=== PATIENT | male | born 1950 | race Caucasian/White ===

== ENCOUNTER 2017-03-09 16:37 | Inpatient (IN) ==
[2017-03-09] MEDS ORDERED: 0.9 % Sodium Chloride 1,000 ML ONE (17:11)
[2017-03-09] MEDS ORDERED: Albuterol 2.5 MG/3 ML NEBULIZER IH ONE (17:16)
[2017-03-09] MEDS ORDERED: Ipratropium/Albuterol Neb 3 ML IH ONE (17:17)
[2017-03-09 17:21] LABS: Basophils # 0.1 K/mcL (0.0-0.2); Basophils % 0.6 %; Eosinophils # 0.1 K/mcL (0.0-0.6); Eosinophils % 0.9 %; Hematocrit 46.8 % (37.5-50.1); Immature Granulocytes % 0.8 % (0-4); Lymphocytes # 0.7 K/mcL (0.6-4.6); Lymphocytes % 5.4 %; Mean Corpuscular HGB Conc 32.1 g/dL (31.6-35.5); Mean Corpuscular Hemoglobin 27.9 pg (28.0-33.3); Mean Corpuscular Volume 87.2 fL (83.0-100.0); Mean Platelet Volume 9.5 fL (9.4-12.4); Monocytes # 1.3 K/mcL (0.0-1.3); Monocytes % 10.7 %; Neutrophils # 10.2 K/mcL (1.6-8.9); Platelet Count 263 K/mcL (140-400); Red Blood Count 5.37 M/mcL (4.19-5.50); Red Cell Distribution Width 14.2 % (11.5-14.5); Segmented Neutrophils % 81.6 %
[2017-03-09] MEDS ORDERED: Azithromycin 500 MG in D5% in Water 250 ML IVPB ONE (17:21)
[2017-03-09 17:26] LABS: INR 1.1
[2017-03-09 17:29] LABS: Activated Partial Thrombo Time 27.9 Seconds (26.0-36.0)
[2017-03-09 17:38] LABS: Alanine Aminotransferase 22 Units/L (0-55); Albumin 3.9 g/dL (3.5-5.0); Albumin/Globulin Ratio 1.1 (1.1-2.2); Alkaline Phosphatase 69 Units/L (38-126); Aspartate Amino Transferase 18 Units/L (5-34); BUN/Creatinine Ratio 14 (6-26); Bilirubin,Direct 0.4 mg/dL (0.0-0.5); Bilirubin,Indirect 0.6 mg/dL (0.0-1.2); Blood Urea Nitrogen 13 mg/dL (8-26); Calcium 9.9 mg/dL (8.6-10.8); Carbon Dioxide 27 mEq/L (19-29); Chloride 101 mEq/L (98-109); Globulin 3.6 g/dL (2.4-3.5); Glucose 112 mg/dL (70-99); Magnesium 1.7 mg/dL (1.6-2.6); Osmolality,Calculated 287 (280-300); Phosphorous 1.5 mg/dL (2.3-4.7); Potassium 3.8 mEq/L (3.5-4.5); Sodium 138 mEq/L (136-145); Total Protein 7.5 g/dL (6.0-8.3); eGFR For African Americans > 60 (> 60); eGFR For Non-African Americans > 60 (> 60)
[2017-03-09] MEDS ORDERED: Acetaminophen 325 MG TABLET PO ONE (17:49)
--- NOTE | 2017-03-09 17:49 | Emergency Department Note ---
Disposition Clinical Impression: Sepsis Qualifiers: Sepsis type: sepsis due to unspecified organism Qualified Code(s): A41.9 - Sepsis, unspecified organism Disposition: Admitted As Inpatient Condition: Fair Time of Disposition: 20:53 General Adult HPI - General Chief complaint: ED Shortness of Breath/Dyspnea Stated complaint: flu like symptoms Time Seen by Provider: 03/09/17 17:11 Source: patient Mode of arrival: private vehicle Limitations: no limitations Nursing Notes Reviewed: Yes Vital Signs Reviewed: Yes - History of Present Illness HPI Narrative: 66-year-old male presents the ED with shortness of breath, hypoxia, fevers and nausea for 2 days. He has a history of COPD, hypertension. He is supposed to be on oxygen at home but says he does not wear. He states that this started yesterday and has progressively gotten worse. He says he is had the sweats and had fever over 101. She is not a very hard time catching his breath. Really is worse than his normal COPD. He is not complaining of any chest pain. He is nauseous Pacetti has not vomited. He is coughing up some sputum. There are no sick contacts at home. No diarrhea, constipation, abdominal pain, pain or tingling down the arms or legs, generalized weakness. He did state that about a week ago he was removing an A/C unit and there was a lot of bird feces that were aerosolized and he did inhale some. Patient has no other complaints at this time. Pain Scale: 0 - Related Data Home Medications Medication Instructions Recorded Confirmed Acyclovir [Zovirax] 800 mg PO 5XD 03/09/17 03/09/17 Albuterol Neb [Proventil Neb] 2.5 mg IH Q4H PRN 03/09/17 03/09/17 Albuterol Sulfate [Proair Hfa] 2 puff IH Q4H PRN 03/09/17 03/09/17 Budesonide/Formoterol 160/4.5 2 puff IH BIDR 03/09/17 03/09/17 [Symbicort 160/4.5] Tiotropium [Spiriva] 18 mcg IH 0700 03/09/17 03/09/17 Allergies Allergy/AdvReac Type Severity Reaction Status Date / Time Sulfa (Sulfonamide Allergy Rash Verified 03/09/17 17:15 Antibiotics) Review of Systems: 10 point review of systems done and negative unless otherwise stated in history of present illness. Review of Systems: As Per HPI Limitations: ROS unobtainable due to patients medical condition Constitutional: Reports: fever. Denies: weakness Cardiovascular: Denies: chest pain, palpitations, dyspnea on exertion, edema, syncope Respiratory: Reports: cough, wheezes, sputum production Gastrointestinal: Denies: abdominal pain, nausea, vomiting, diarrhea, constipation, hematemesis, melena, hematochezia Past Medical History - Past Medical History Medical history: Reports: asthma, COPD, hypertension, TIA Psychiatric history: Reports: no psych history - Social History Smoking Status: Former smoker Smokeless Tobacco Status: No Alcohol use: Reports: none Drug use: Reports: none Physical Exam - General Limitations: no limitations General appearance: alert, in no apparent distress - Head Head exam: atraumatic, normocephalic, normal inspection - Eye Eye exam: Present: normal appearance, PERRL, EOMI - ENT ENT exam: normal exam, normal oropharynx, mucous membranes moist - Neck Neck exam: Present: normal inspection, full ROM, trachea midline - Chest Chest inspection: Present: normal inspection, symmetric chest wall rise - Respiratory Respiratory exam: Present: wheezes (Bilaterally), accessory muscle use - Cardiovascular Cardiovascular exam: Present: normal rhythm, tachycardia, normal heart sounds - Abdominal Exam Abdominal exam: Present: soft, Non-Tender. Absent: tenderness, distention, guarding, rebound, rigidity - Expanded Lower Extremity Exam Neurovascular/Tendon exam: Absent: motor deficit, sensory deficit, tendon deficit - Back Exam Back exam: Present: normal inspection, full ROM. Absent: tenderness, CVA tenderness (R), CVA tenderness (L) - Neurological Exam Neurological exam: Present: alert, oriented X3 - Skin Skin exam: Present: warm, dry, intact, normal color Course Course Narrative: 66-year-old male presents to the ED complaining of shortness of breath and fevers as well as hypoxia. Upon arrival he is having a hard time breathing so we put him on nasal cannula at 4 L his saturation was still below 90 so we put him on an oxygen mask at 6 L oxygen saturation were 93% which is normal for him. He was having a very difficult time breathing. He was tachycardic, tachypneic and had a fever. So he was considered under sepsis protocol. We then got labs including blood cultures. An lactate. He had an IV placed and fluids began running. Also gave him DuoNeb's as he was very tight in the lungs and did have wheezes. We got a chest x-ray, flu swab. We will start him on azithromycin and ceftriaxone. Patient's okay with this plan. Most likely disposition is admission. - Reevaluation(s) Reevaluation #1: We did order a d-dimer because he was tachycardic and hypoxic. That did come back elevated so we decided to get a CT angiogram of his chest to rule out any signs of pulmonary embolism. Patient also had a little bit COPD exacerbation so we did give him Solu-Medrol. Due the pain as well as tachycardia we also gave him 325 of aspirin. Patient okay with this plan. Time: 18:50 Vital Signs O2 Sat by Pulse Oximetry 92 03/09/17 17:12 Temperature 99.1 F 03/09/17 22:49 Pulse Rate 97 03/09/17 22:49 Respiratory Rate 22 03/09/17 22:49 Blood Pressure 136/94 03/09/17 22:49 O2 Sat by Pulse Oximetry 92 03/09/17 22:49 Oxygen Delivery Oxygen Delivery Room Air Medical Decision Making - MDM Narrative Medical decision making narrative: 66-year-old male presents to the ED complaining of flulike symptoms including fever, shortness of breath, hypoxia and generalized weakness. He did have an exposure to Bird feces couple days ago. Patient was hypoxic upon arrival so we put him on an oxygen mask at 6 L and his saturations went to 93% which is normal for him as he does have COPD. We got blood cultures, lactate, basic laboratories. We also got chest x-ray. Chest x-ray did show possible pneumonia in the bases. We started him on azithromycin and Rocephin as that does cover chlamydia psittici. Due to patient per currently being under sepsis protocol as he was tachycardic to And did have a fever we started sepsis protocol and got blood cultures on him as well. He did have elevated white count as well. Due to his shortness of breath and tachypnea and hypoxia we also worried about possible pulmonary embolism so we did a d-dimer which was elevated and then we proceeded to get a CT angiogram of his chest. Which did not show a pulmonary embolism in the central arteries. Patient was admitted to the hospitalist service for further evaluation and treatment. Patient is okay with this plan. Patient was successfully admitted to the hospitalist Dr. Jacome. Patient is admitted in stable condition. Chest X-Ray 03/09/17 17:12 IMPRESSION: Minimal linear opacity in the bases, favored to represent atelectasis or scarring. Superimposed pneumonia is a possibility in the appropriate clinical setting. D/ / Elgin Greene MD / Elgin Greene MD Interpreting Provider: Elgin Greene MD Chest CTA 03/09/17 18:09 IMPRESSION: 1. Suboptimal evaluation of the segmental and subsegmental pulmonary arterial branches. No central pulmonary embolus detected. 2. Patchy bilateral lower lung airspace opacity, greater on the left. Although some of this could be atelectasis, pneumonia is also considered likely. That should be followed to resolution. D/ / Tip Wright MD / Tip Wright MD Interpreting Provider: Tip Wright MD - Medical Records Medical records reviewed: Yes I reviewed the patient's medical records. - Lab Data Lab results reviewed: Yes I reviewed the patient's lab results. Result diagrams: 03/09/17 17:10 03/09/17 17:10 Lab Results 03/09/17 03/09/17 03/09/17 Range/Units 17:10 17:10 17:10 WBC 12.5 H (4.3-11.1) K/mcL RBC 5.37 (4.19-5.50) M/mcL Hgb 15.0 (12.9-16.9) g/dL Hct 46.8 (37.5-50.1) % MCV 87.2 (83.0-100.0) fL MCH 27.9 L (28.0-33.3) pg MCHC 32.1 (31.6-35.5) g/dL RDW 14.2 (11.5-14.5) % Plt Count 263 (140-400) K/mcL MPV 9.5 (9.4-12.4) fL Immature Gran % 0.8 (0-4) % Seg Neutrophils % 81.6 % Lymphocytes % 5.4 % Monocytes % 10.7 % Eosinophils % 0.9 % Basophils % 0.6 % Neutrophils # 10.2 H (1.6-8.9) K/mcL Lymphocytes # 0.7 (0.6-4.6) K/mcL Monocytes # 1.3 (0.0-1.3) K/mcL Eosinophils # 0.1 (0.0-0.6) K/mcL Basophils # 0.1 (0.0-0.2) K/mcL PT 12.0 (9.4-12.1) Seconds INR 1.1 APTT 27.9 (26.0-36.0) Seconds D-Dimer 962 H (0-500) ng/mLFEU ABG pH (7.32-7.45) pH Units ABG pCO2 (35-45) mmHg ABG pO2 (85-104) mmHg ABG HCO3 (21-27) mEq/L ABG Total CO2 (20-26) mEq/L ABG O2 Saturation (95-98) % ABG Base Excess (-2 to 3) mEq/L Sodium 138 (136-145) mEq/L Potassium 3.8 (3.5-4.5) mEq/L Chloride 101 (98-109) mEq/L Carbon Dioxide 27 (19-29) mEq/L BUN 13 (8-26) mg/dL Creatinine 0.95 (0.72-1.25) mg/dL Est GFR ( Amer) > 60 (> 60) Est GFR (Non-Af Amer) > 60 (> 60) BUN/Creatinine Ratio 14 (6-26) Glucose 112 H (70-99) mg/dL Calculated Osmolality 287 (280-300) Lactic Acid (0.5-2.2) mmol/L Calcium 9.9 (8.6-10.8) mg/dL Phosphorus 1.5 L (2.3-4.7) mg/dL Magnesium 1.7 (1.6-2.6) mg/dL Total Bilirubin 1.0 (0.2-1.2) mg/dL Direct Bilirubin 0.4 (0.0-0.5) mg/dL Indirect Bilirubin 0.6 (0.0-1.2) mg/dL AST 18 (5-34) Units/L ALT 22 (0-55) Units/L Alkaline Phosphatase 69 (38-126) Units/L Troponin I (0-0.03) ng/mL B-Natriuretic Peptide (0-100) pg/mL Serum Total Protein 7.5 (6.0-8.3) g/dL Albumin 3.9 (3.5-5.0) g/dL Globulin 3.6 H (2.4-3.5) g/dL Albumin/Globulin Ratio 1.1 (1.1-2.2) Urine Color (Yellow) Urine Clarity (Clear) Urine pH (5.0-8.0) pH Units Ur Specific [place] (1.010-1.025) Urine Protein (Neg-Trace) mg/dL Urine Glucose (UA) (Normal) mg/dL Urine Ketones (Negative) mg/dL Urine Blood (Negative) Urine Nitrite (Negative) Urine Bilirubin (Negative) Urine Urobilinogen (Normal) mg/dL Ur Leukocyte Esterase (Negative) Urine Microscopic RBC (0-3) per hpf Urine Microscopic WBC (0-3) per hpf Ur Squamous Epith Cells (None-Few) per lpf Urine Bacteria (None-Few) per hpf Hyaline Casts (None-Few) per lpf Ur Culture Indicated? (NO) 03/09/17 03/09/17 03/09/17 Range/Units 17:10 17:10 17:54 WBC (4.3-11.1) K/mcL RBC (4.19-5.50) M/mcL Hgb (12.9-16.9) g/dL Hct (37.5-50.1) % MCV (83.0-100.0) fL MCH (28.0-33.3) pg MCHC (31.6-35.5) g/dL RDW (11.5-14.5) % Plt Count (140-400) K/mcL MPV (9.4-12.4) fL Immature Gran % (0-4) % Seg Neutrophils % % Lymphocytes % % Monocytes % % Eosinophils % % Basophils % % Neutrophils # (1.6-8.9) K/mcL Lymphocytes # (0.6-4.6) K/mcL Monocytes # (0.0-1.3) K/mcL Eosinophils # (0.0-0.6) K/mcL Basophils # (0.0-0.2) K/mcL PT (9.4-12.1) Seconds INR APTT (26.0-36.0) Seconds D-Dimer (0-500) ng/mLFEU ABG pH 7.41 (7.32-7.45) pH Units ABG pCO2 39 (35-45) mmHg ABG pO2 70 L (85-104) mmHg ABG HCO3 25 (21-27) mEq/L ABG Total CO2 26 (20-26) mEq/L ABG O2 Saturation 94 L (95-98) % ABG Base Excess 1 (-2 to 3) mEq/L Sodium (136-145) mEq/L Potassium (3.5-4.5) mEq/L Chloride (98-109) mEq/L Carbon Dioxide (19-29) mEq/L BUN (8-26) mg/dL Creatinine (0.72-1.25) mg/dL Est GFR ( Amer) (> 60) Est GFR (Non-Af Amer) (> 60) BUN/Creatinine Ratio (6-26) Glucose (70-99) mg/dL Calculated Osmolality (280-300) Lactic Acid (0.5-2.2) mmol/L Calcium (8.6-10.8) mg/dL Phosphorus (2.3-4.7) mg/dL Magnesium (1.6-2.6) mg/dL Total Bilirubin (0.2-1.2) mg/dL Direct Bilirubin (0.0-0.5) mg/dL Indirect Bilirubin (0.0-1.2) mg/dL AST (5-34) Units/L ALT (0-55) Units/L Alkaline Phosphatase (38-126) Units/L Troponin I 0.01 (0-0.03) ng/mL B-Natriuretic Peptide 114 H (0-100) pg/mL Serum Total Protein (6.0-8.3) g/dL Albumin (3.5-5.0) g/dL Globulin (2.4-3.5) g/dL Albumin/Globulin Ratio (1.1-2.2) Urine Color (Yellow) Urine Clarity (Clear) Urine pH (5.0-8.0) pH Units Ur Specific [place] (1.010-1.025) Urine Protein (Neg-Trace) mg/dL Urine Glucose (UA) (Normal) mg/dL Urine Ketones (Negative) mg/dL Urine Blood (Negative) Urine Nitrite (Negative) Urine Bilirubin (Negative) Urine Urobilinogen (Normal) mg/dL Ur Leukocyte Esterase (Negative) Urine Microscopic RBC (0-3) per hpf Urine Microscopic WBC (0-3) per hpf Ur Squamous Epith Cells (None-Few) per lpf Urine Bacteria (None-Few) per hpf Hyaline Casts (None-Few) per lpf Ur Culture Indicated? (NO) 03/09/17 03/09/17 Range/Units 17:59 18:12 WBC (4.3-11.1) K/mcL RBC (4.19-5.50) M/mcL Hgb (12.9-16.9) g/dL Hct (37.5-50.1) % MCV (83.0-100.0) fL MCH (28.0-33.3) pg MCHC (31.6-35.5) g/dL RDW (11.5-14.5) % Plt Count (140-400) K/mcL MPV (9.4-12.4) fL Immature Gran % (0-4) % Seg Neutrophils % % Lymphocytes % % Monocytes % % Eosinophils % % Basophils % % Neutrophils # (1.6-8.9) K/mcL Lymphocytes # (0.6-4.6) K/mcL Monocytes # (0.0-1.3) K/mcL Eosinophils # (0.0-0.6) K/mcL Basophils # (0.0-0.2) K/mcL PT (9.4-12.1) Seconds INR APTT (26.0-36.0) Seconds D-Dimer (0-500) ng/mLFEU ABG pH (7.32-7.45) pH Units ABG pCO2 (35-45) mmHg ABG pO2 (85-104) mmHg ABG HCO3 (21-27) mEq/L ABG Total CO2 (20-26) mEq/L ABG O2 Saturation (95-98) % ABG Base Excess (-2 to 3) mEq/L Sodium (136-145) mEq/L Potassium (3.5-4.5) mEq/L Chloride (98-109) mEq/L Carbon Dioxide (19-29) mEq/L BUN (8-26) mg/dL Creatinine (0.72-1.25) mg/dL Est GFR ( Amer) (> 60) Est GFR (Non-Af Amer) (> 60) BUN/Creatinine Ratio (6-26) Glucose (70-99) mg/dL Calculated Osmolality (280-300) Lactic Acid 1.0 (0.5-2.2) mmol/L Calcium (8.6-10.8) mg/dL Phosphorus (2.3-4.7) mg/dL Magnesium (1.6-2.6) mg/dL Total Bilirubin (0.2-1.2) mg/dL Direct Bilirubin (0.0-0.5) mg/dL Indirect Bilirubin (0.0-1.2) mg/dL AST (5-34) Units/L ALT (0-55) Units/L Alkaline Phosphatase (38-126) Units/L Troponin I (0-0.03) ng/mL B-Natriuretic Peptide (0-100) pg/mL Serum Total Protein (6.0-8.3) g/dL Albumin (3.5-5.0) g/dL Globulin (2.4-3.5) g/dL Albumin/Globulin Ratio (1.1-2.2) Urine Color Yellow (Yellow) Urine Clarity Clear (Clear) Urine pH 8.0 (5.0-8.0) pH Units Ur Specific [place] 1.023 (1.010-1.025) Urine Protein 30 H (Neg-Trace) mg/dL Urine Glucose (UA) Normal (Normal) mg/dL Urine Ketones Trace H (Negative) mg/dL Urine Blood Negative (Negative) Urine Nitrite Negative (Negative) Urine Bilirubin Negative (Negative) Urine Urobilinogen Normal (Normal) mg/dL Ur Leukocyte Esterase Trace H (Negative) Urine Microscopic RBC 5-15 H (0-3) per hpf Urine Microscopic WBC 5-15 H (0-3) per hpf Ur Squamous Epith Cells Many H (None-Few) per lpf Urine Bacteria None Seen (None-Few) per hpf Hyaline Casts None Seen (None-Few) per lpf Ur Culture Indicated? YES A (NO) - Radiology Data Radiology results reviewed: Yes I reviewed the patient's radiology results. - EKG Data EKG #1 EKG attestation: Yes I reviewed and interpreted this EKG. EKG results narrative: EKG done at 1711 and reviewed by myself and the attending shows sinus tachycardia at a rate of 123, SD 112, QRS 107, QTc 386 with a leftward axis deviation. There is no signs of ST changes, T-wave changes. No signs of hypertrophy. No signs of WA/B Gotto syndrome. No signs of any blocks. Patient did not have an old EKG to compare this time. Overall impression is sinus tachycardia with a short SD interval. EKG shows normal: sinus rhythm, QRS complexes, ST-T waves Rate: tachycardia Rhythm: NSR [place]/QRS: left axis deviation When compared to previous EKG there are: previous EKG unavailable Interpretation: no acute changes Attestation Statement - Attestation Attestation: I, Ming Davison, examined this patient and my medical decision-making was reviewed with the APPRENTICE/PA/Advanced Practice Nurse/Resident Physician. I agree with the documented findings, disposition and treatment plan as described except to the extent set forth below. 66-year-old male resents emergency department with concerns of tachycardia and shortness of breath. Patient states symptoms have been worsening over the past 48 hours. Patient has a history of severe COPD. He reports he had exposure to birds feces while taking down an air conditioner at his house 2 days ago. Patient reports fever, nausea, increasing shortness of breath with minimal exertion. On initial evaluation patient is diaphoretic and tachycardic to 1: 30. Patient satting 85% on our initial evaluation. This improved with oxygen via Ventimask and then started to sat 93%. Patient states he improved significantly after administration of albuterol nebulizer. CTA of the chest was negative for PE. Patient has possible pneumonia present on x-ray and CT. He was started on community-acquired antibiotics which include azithromycin to cover possible Psittaci. Patient comfortable with the plan for admission of the hospital. He was accepted to the hospital by Dr. Jacome.
[2017-03-09 17:59] LABS: ABG Base Excess 1 mEq/L (-2 to 3); ABG HCO3 25 mEq/L (21-27); ABG Oxygen Saturation 94 % (95-98); ABG PCO2 39 mmHg (35-45); ABG PH 7.41 pH Units (7.32-7.45); ABG PO2 70 mmHg (85-104); ABG TCO2 26 mEq/L (20-26)
[2017-03-09 18:14] LABS: Bilirubin,Urine Negative (Negative); Blood,Urine Negative (Negative); Clarity,Urine Clear (Clear); Color,Urine Yellow (Yellow); Glucose,Urine (UA) Normal (Normal); Ketones,Urine Trace mg/dL (Negative); Leukocyte Esterase,Urine Trace (Negative); Nitrite,Urine Negative (Negative); Protein,Urine 30 mg/dL (Neg-Trace); Specific Gravity,Urine 1.023 (1.010-1.025); Urobilinogen,Urine Normal (Normal)
[2017-03-09 18:16] LABS: Bacteria,Urine None Seen per hpf (None-Few); Hyaline Casts,Urine None Seen per lpf (None-Few); Squamous Epithelial Cell,Urine Many per lpf (None-Few)
[2017-03-09] MEDS: 0.9 % Sodium Chloride 1,000 ML IVC SCH ×2 (18:37→18:38)
[2017-03-09] MEDS ORDERED: Aspirin 81 MG TAB.CHEW PO ONE (18:48)
[2017-03-09] MEDS ORDERED: methylPREDNISolone 125 MG/2 ML VIAL IVP ONE (18:48)
--- NOTE | 2017-03-09 23:26 | Internal Med History&Physical ---
Date of Encounter: 03/09/17 Time of Encounter: 23:26 Assessment and Plan (1) Acute respiratory failure with hypoxia Current visit: Yes Status: Acute Patient has COPD at baseline but is not on home oxygen, he comes in with worsening respiratory symptoms and is found to have a pulse ox reading in the 80s, which improved with the use of noninvasive mechanical ventilation, the etiology of his current predicament is multifactorial, his underlying COPD with superimposed shunting from suspected pneumonia, we will continue NIMV with continuous pulse ox monitoring, will transition to nasal cannula when he has sustained improvement in his currently tenuous respiratory state whilst treating the underlying cause (2) Sepsis Current visit: Yes Status: Acute Comes in with signs and symptoms of pneumonia and is found to have criteria meeting sepsis, he was empirically started on IV antibiotics after blood cultures were drawn, he also received IVF bolus per the sepsis protocol, we will continue antibiotic regimen pending microbiology results Qualifiers: Sepsis type: sepsis due to unspecified organism Qualified Code(s): A41.9 - Sepsis, unspecified organism (3) Pneumonia Current visit: Yes Status: Acute Presents with signs and symptoms of respiratory tract infection and is found to have an infiltrate on diagnostic imaging, will check sputum Gram stain and culture, urine legionella and strep antigens, further assessment and plan per sepsis section Qualifiers: Pneumonia type: due to unspecified organism Laterality: left Lung location: lower lobe of lung Qualified Code(s): J18.1 - Lobar pneumonia, unspecified organism (4) COPD (chronic obstructive pulmonary disease) Current visit: Yes Status: Chronic In mild exacerbation, continue ana m and PRN nebs Qualifiers: COPD type: emphysema Emphysema type: panlobular Qualified Code(s): J43.1 - Panlobular emphysema (5) HTN (hypertension) Current visit: Yes Status: Chronic continue antihypertensives with BP monitoring Qualifiers: Hypertension type: essential hypertension Qualified Code(s): I10 - Essential (primary) hypertension Internal Medicine - H&P: HPI Chief complaint: shortness of breath Admitted From: Emergency Dept Plans for Post Hospital Care: Home History of present illness: Mr. Szymanski is a 66 year old male with a history of COPD not on home oxygen as well as essential hypertension who comes to the ER today with worsening shortness of breath. He reports that he was in his usual state of health until 2 days prior to presentation when he began experiencing worsening dyspnea from his baseline, associated with multiple episodes of cough with production of yellowish sputum with increasing amounts. This was also associated with episodes of intermittent fever and chills with a temperature check at home of 101. He also noticed dyspnea on exertion, night sweats, nausea but no vomiting. He had general aches and pains with general malaise. He reports that his symptoms initially began with nasal congestion and runny nose but denies recent sick contacts. On the day prior to the onset of the symptoms he was exposed to bird droppings when he tried to clean A/C unit. 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 He denies any changes to his urinary or bowel habits. He came to the ER today due to worsening symptoms. In the ER he was found to have a pulse ox reading in the 80's and was summarily placed on NIMV with improvement in his respiratory status. Past Med Surg Social Fam HX - Past Medical History Source: patient Medical history: asthma, COPD, hypertension, TIA Psychiatric history: no psych history - Past Surgical History Surgical History: other (tonsillectomy, LHC but no stents) - Social History Smoking Status: Former smoker (smoked from age of 19 years) Packs per day: 1-2ppd but quit 1 yr ago Smokeless Tobacco Status: No Alcohol use: none Drug use: none Current living situation: Home - Independent, With Family Activity Level: Independent ambulation - Family History Mother History Unknown: Yes Father Living Status: Age at : 60 Hx Family Respiratory Disorders: Yes - Additional Family History Additional family history: His father had hypertension, he also had PA in his 40 's, no family history of diabetes mellitus or cancer to his knowledge Internal Medicine - H&P: Meds Acyclovir [Zovirax] 800 mg PO 5XD 03/09/17 [History] Albuterol Neb [Proventil Neb] 2.5 mg IH Q4H PRN 03/09/17 [History] Albuterol Sulfate [Proair Hfa] 2 puff IH Q4H PRN 03/09/17 [History] Budesonide/Formoterol 160/4.5 [Symbicort 160/4.5] 2 puff IH BIDR 03/09/17 [ History] Tiotropium [Spiriva] 18 mcg IH 0700 03/09/17 [History] 3 Allergy/AdvReac Type Severity Reaction Status Date / Time Sulfa (Sulfonamide Allergy Rash Verified 03/09/17 17:15 Antibiotics) All Systems PM: A 10-system review of systems was performed and is negative for pertinent findings except as documented above in the HPI. - Constitutional Vitals: Temp Pulse Resp BP Pulse Ox 99.1 F 97 22 136/94 90 03/09/17 22:49 03/09/17 22:49 03/09/17 22:49 03/09/17 22:49 03/09/17 23:01 GENERAL: Adult male, lying in bed, Alert, in respiratory distress HEENT: NC/AT, EOMI, PERRLA, anicteric sclera, normal conjunctiva, supple, clear nares, moist mucous membranes, RESP: [place] wheezing in all lung gloria with prolonged expiratory phase, limited air entry, no crackles CARDIO: Normal heart sounds with RRR, no murmurs, no JVD, no ankle edema GI: Soft, full, no tenderness, no organomegaly felt, normal bowel sounds heard MUSCULOSKELETAL: Grossly normal movements bilaterally, no deformities noted, NEUROLOGIC: CN 2-12 intact grossly. No gross motor/sensory deficit appreciated, PSYCHIATRY: AAO x 3. Mood is fair SKIN: no skin rash or ulcers noted Internal Med - H&P Results - Labs CBC & Chem 7: 03/09/17 17:10 03/09/17 17:10 - Diagnostic Studies Chest x-ray Status: image reviewed by me CT scan - chest Status: image reviewed by me
[2017-03-09] MEDS ORDERED: Naloxone 0.4 MG/ML INJ IVP PRN (23:43)
[2017-03-09] MEDS ORDERED: Albuterol 2.5 MG/3 ML NEBULIZER IH PRN (23:45)
[2017-03-10] MEDS: Albuterol 2.5 MG/3 ML NEBULIZER IH SCH ×7 (00:32→23:06)
[2017-03-10] MEDS: *HR* Heparin 5,000 UNIT/ML VIAL SQ SCH ×3 (00:48→16:38)
[2017-03-10] MEDS ORDERED: cefTRIAXone 1,000 MG in Water for inj. (sterile) 10 ML IVP ONE ×2 (01:00→17:22)
[2017-03-10 07:21] LABS: BUN/Creatinine Ratio 23 (6-26); Blood Urea Nitrogen 19 mg/dL (8-26); Calcium 9.2 mg/dL (8.6-10.8); Carbon Dioxide 26 mEq/L (19-29); Chloride 104 mEq/L (98-109); Glucose 172 mg/dL (70-99); Magnesium 1.9 mg/dL (1.6-2.6); Osmolality,Calculated 292 (280-300); Phosphorous 1.6 mg/dL (2.3-4.7); Potassium 3.5 mEq/L (3.5-4.5); Sodium 138 mEq/L (136-145); eGFR For African Americans > 60 (> 60); eGFR For Non-African Americans > 60 (> 60)
[2017-03-10 07:49] LABS: Basophils % 0.4 %; Hematocrit 42.5 % (37.5-50.1); Immature Granulocytes % 1.2 % (0-4); Lymphocytes # 0.5 K/mcL (0.6-4.6); Lymphocytes % 4.6 %; Mean Corpuscular HGB Conc 31.5 g/dL (31.6-35.5); Mean Corpuscular Hemoglobin 27.7 pg (28.0-33.3); Mean Corpuscular Volume 87.8 fL (83.0-100.0); Mean Platelet Volume 9.9 fL (9.4-12.4); Monocytes # 0.4 K/mcL (0.0-1.3); Monocytes % 3.3 %; Neutrophils # 10.2 K/mcL (1.6-8.9); Platelet Count 261 K/mcL (140-400); Red Blood Count 4.84 M/mcL (4.19-5.50); Red Cell Distribution Width 14.1 % (11.5-14.5); Segmented Neutrophils % 90.5 %
[2017-03-10 08:04] LABS: Hemoglobin 13.4 g/dL (12.9-16.9)
[2017-03-10] MEDS: Budesonide/Formoterol 160/4.5 MDI IH SCH ×2 (08:08→19:41)
[2017-03-10] MEDS: Azithromycin 250 MG TABLET PO SCH (08:36)
[2017-03-10] MEDS: cefTRIAXone 2,000 MG in Water for inj. (sterile) 20 ML IVP SCH (11:20)
[2017-03-10] MEDS ORDERED: *HR* Metoprolol 5 MG/5 ML VIAL IVP ONE ×2 (17:11→17:13)
[2017-03-10] MEDS ORDERED: Levalbuterol Neb 1.25 MG/3 ML IH ONE (17:44)
[2017-03-10] MEDS ORDERED: methylPREDNISolone 125 MG/2 ML VIAL IVP ONE (19:14)
--- NOTE | 2017-03-10 19:19 | Internal Med Progress Note ---
Date of Encounter: 03/10/17 Time of Encounter: 11:00 - Assessment and plan (1) Acute respiratory failure with hypoxia Current Visit: Yes Status: Acute Assessment and plan: -Patient with acute hypoxic respiratory failure secondary to COPD exacerbation due to community-acquired pneumonia -Management as below (2) Pneumonia Current Visit: Yes Status: Acute Assessment and plan: -Continue IV antibiotics with IV ceftriaxone/azithromycin Qualifiers: Pneumonia type: due to unspecified organism Laterality: left Lung location: lower lobe of lung Qualified Code(s): J18.1 - Lobar pneumonia, unspecified organism (3) COPD (chronic obstructive pulmonary disease) Current Visit: Yes Status: Chronic Assessment and plan: -Patient with acute on chronic COPD exacerbation -Given IV Solu-Medrol Qualifiers: COPD type: emphysema Emphysema type: panlobular Qualified Code(s): J43.1 - Panlobular emphysema (4) Tachycardia Current Visit: Yes Status: Acute Assessment and plan: -Patient was SVT this afternoon which did not respond to adenosine or vagovagal maneuvers but did respond to Cardizem -We will continue low-dose Cardizem -Cardiology consulted and appreciate recommendations (5) HTN (hypertension) Current Visit: Yes Status: Chronic Qualifiers: Hypertension type: essential hypertension Qualified Code(s): I10 - Essential (primary) hypertension (6) DVT prophylaxis Current Visit: Yes Status: Acute Assessment and plan: Continue heparin - Subjective Interval history: Patient was SVT this afternoon which did not respond to adenosine or vagovagal maneuvers but did respond to Cardizem Patient without chest pain and in no respiratory distress on supplemental oxygen at 2 L satting low 90s - Constitutional Vitals: Temp Pulse Resp BP Pulse Ox 98.2 F 198 20 134/85 91 03/10/17 16:25 03/10/17 17:14 03/10/17 17:56 03/10/17 17:56 03/10/17 17:56 - Respiratory Respiratory exam: Present: wheezes. Absent: accessory muscle use, respiratory distress - Cardiovascular Cardiovascular exam: Present: RRR, +S1, +S2. Absent: diastolic murmur, gallop, rubs, systolic murmur Internal Medicine: Result - Labs CBC & Chem 7: 03/10/17 06:44 03/10/17 06:44 Labs: Short CBC 03/10/17 Range/Units 06:44 WBC 11.3 H (4.3-11.1) K/mcL Hgb 13.4 D (12.9-16.9) g/dL Hct 42.5 (37.5-50.1) % Plt Count 261 (140-400) K/mcL Neutrophils # 10.2 H (1.6-8.9) K/mcL BMP 03/10/17 06:44 Sodium 138 Potassium 3.5 Chloride 104 Carbon Dioxide 26 BUN 19 Creatinine 0.81 Glucose 172 H Calcium 9.2 - ABG Interpretation ABG results: ABG ABG pH 7.41 pH Units (7.32-7.45) 03/09/17 17:54 ABG pCO2 39 mmHg (35-45) 03/09/17 17:54 ABG pO2 70 mmHg (85-104) L 03/09/17 17:54 ABG O2 Saturation 94 % (95-98) L 03/09/17 17:54 PT/INR, D-dimer PT 12.0 Seconds (9.4-12.1) 03/09/17 17:10 D-Dimer 962 ng/mLFEU (0-500) H 03/09/17 17:10 Consult Discharge Plan - Plan Referrals: Trena Navarro, [employer] [Primary Care Provider] -
[2017-03-11] MEDS: *HR* Heparin 5,000 UNIT/ML VIAL SQ SCH ×3 (00:16→17:32)
[2017-03-11] MEDS: Albuterol 2.5 MG/3 ML NEBULIZER IH SCH ×2 (04:27→07:44)
[2017-03-11] MEDS: Budesonide/Formoterol 160/4.5 MDI IH SCH ×2 (07:44→20:52)
[2017-03-11] MEDS: Azithromycin 250 MG TABLET PO SCH (10:12)
[2017-03-11] MEDS: Ipratropium/Albuterol Neb 3 ML IH SCH ×4 (11:25→23:23)
[2017-03-11 11:45] LABS: Basophils % 0.3 %; Hematocrit 41.2 % (37.5-50.1); Hemoglobin 13.2 g/dL (12.9-16.9); Immature Granulocytes % 1.3 % (0-4); Lymphocytes # 0.6 K/mcL (0.6-4.6); Lymphocytes % 4.4 %; Mean Corpuscular Hemoglobin 28.3 pg (28.0-33.3); Mean Corpuscular Volume 88.2 fL (83.0-100.0); Mean Platelet Volume 9.6 fL (9.4-12.4); Monocytes # 1.1 K/mcL (0.0-1.3); Monocytes % 7.5 %; Neutrophils # 12.6 K/mcL (1.6-8.9); Platelet Count 289 K/mcL (140-400); Red Blood Count 4.67 M/mcL (4.19-5.50); Red Cell Distribution Width 14.6 % (11.5-14.5); Segmented Neutrophils % 86.5 %
[2017-03-11 11:58] LABS: BUN/Creatinine Ratio 28 (6-26); Blood Urea Nitrogen 24 mg/dL (8-26); Calcium 9.2 mg/dL (8.6-10.8); Carbon Dioxide 26 mEq/L (19-29); Chloride 107 mEq/L (98-109); Glucose 151 mg/dL (70-99); Osmolality,Calculated 303 (280-300); Potassium 3.7 mEq/L (3.5-4.5); Sodium 143 mEq/L (136-145); eGFR For African Americans > 60 (> 60); eGFR For Non-African Americans > 60 (> 60)
[2017-03-11] MEDS: cefTRIAXone 2,000 MG in Water for inj. (sterile) 20 ML IVP SCH (13:10)
--- NOTE | 2017-03-11 14:30 | Internal Med Progress Note ---
Date of Encounter: 03/11/17 Time of Encounter: 11:00 - Assessment and plan (1) Acute respiratory failure with hypoxia Current Visit: Yes Status: Acute Assessment and plan: -Patient with acute hypoxic respiratory failure secondary to COPD exacerbation due to community-acquired pneumonia -Management as below -Will consult pulmonology and appreciate recommendations (2) Pneumonia Current Visit: Yes Status: Acute Assessment and plan: -Patient with diffuse expiratory wheezes and hypoxia -Chest x-ray showed Minimal linear opacity in the bases, favored to represent atelectasis or scarring. Superimposed pneumonia is a possibility in the appropriate clinical setting. -Continue IV antibiotics with IV ceftriaxone/azithromycin Qualifiers: Pneumonia type: due to unspecified organism Laterality: left Lung location: lower lobe of lung Qualified Code(s): J18.1 - Lobar pneumonia, unspecified organism (3) COPD exacerbation Current Visit: Yes Status: Acute Assessment and plan: -Patient hypoxic with diffuse expiratory wheezes. -Will continue DuoNeb with Solu-Medrol -Pulmonology consult as above (4) Tachycardia Current Visit: Yes Status: Acute Assessment and plan: -Patient was SVT on 03/11/17 which did not respond to adenosine or vagovagal maneuvers but did respond to Cardizem -Patient's heart rate has been controlled overnight on oral Cardizem -Cardiology consulted with recommendations to continue current medical management and follow-up of medical intern as an outpatient. (5) HTN (hypertension) Current Visit: Yes Status: Chronic Assessment and plan: -Controlled; continue current medical management Qualifiers: Hypertension type: essential hypertension Qualified Code(s): I10 - Essential (primary) hypertension (6) DVT prophylaxis Current Visit: Yes Status: Acute Assessment and plan: Continue heparin - Subjective Interval history: Patient's rate has been controlled on oral Cardizem Patient continues to require supplemental oxygen at 2 L satting low 90s - Constitutional Vitals: Temp Pulse Resp BP Pulse Ox 98.5 F 85 18 151/82 95 03/11/17 11:47 03/11/17 11:47 03/11/17 11:47 03/11/17 11:47 03/11/17 11:47 - Respiratory Respiratory exam: Present: wheezes (diffuse expiratory wheezes). Absent: accessory muscle use, chest wall tenderness, decreased breath sounds, respiratory distress, stridor, tachypnea - Cardiovascular Cardiovascular exam: Present: RRR, +S1, +S2. Absent: diastolic murmur, gallop, rubs, systolic murmur Internal Medicine: Result - Labs CBC & Chem 7: 03/11/17 11:34 03/11/17 11:34 Labs: Short CBC 03/11/17 Range/Units 11:34 WBC 14.6 H (4.3-11.1) K/mcL Hgb 13.2 (12.9-16.9) g/dL Hct 41.2 (37.5-50.1) % Plt Count 289 (140-400) K/mcL Neutrophils # 12.6 H (1.6-8.9) K/mcL BMP 03/11/17 11:34 Sodium 143 Potassium 3.7 Chloride 107 Carbon Dioxide 26 BUN 24 Creatinine 0.86 Glucose 151 H Calcium 9.2 - ABG Interpretation ABG results: ABG ABG pH 7.41 pH Units (7.32-7.45) 03/09/17 17:54 ABG pCO2 39 mmHg (35-45) 03/09/17 17:54 ABG pO2 70 mmHg (85-104) L 03/09/17 17:54 ABG O2 Saturation 94 % (95-98) L 03/09/17 17:54 PT/INR, D-dimer PT 12.0 Seconds (9.4-12.1) 03/09/17 17:10 D-Dimer 962 ng/mLFEU (0-500) H 03/09/17 17:10 Consult Discharge Plan - Plan Referrals: Trena Navarro, TRIM TECHNICIAN [Primary Care Provider] -
[2017-03-11] MEDS: MethylPREDNISolone 40 MG/ML VIAL IVP SCH (17:32)
[2017-03-12] MEDS: Ipratropium/Albuterol Neb 3 ML IH SCH ×7 (04:08→23:25)
[2017-03-12] MEDS: MethylPREDNISolone 40 MG/ML VIAL IVP SCH ×2 (05:32→17:03)
[2017-03-12] MEDS: Budesonide/Formoterol 160/4.5 MDI IH SCH ×2 (07:57→20:23)
[2017-03-12] MEDS: Azithromycin 250 MG TABLET PO SCH (08:23)
[2017-03-12] MEDS: *HR* Heparin 5,000 UNIT/ML VIAL SQ SCH ×4 (08:24→23:19)
[2017-03-12 10:01] LABS: Basophils % 0.3 %; Hematocrit 39.9 % (37.5-50.1); Hemoglobin 12.6 g/dL (12.9-16.9); Immature Granulocytes % 2.4 % (0-4); Lymphocytes # 0.6 K/mcL (0.6-4.6); Lymphocytes % 5.3 %; Mean Corpuscular HGB Conc 31.6 g/dL (31.6-35.5); Mean Corpuscular Hemoglobin 28.1 pg (28.0-33.3); Mean Corpuscular Volume 88.9 fL (83.0-100.0); Mean Platelet Volume 9.6 fL (9.4-12.4); Monocytes # 0.3 K/mcL (0.0-1.3); Monocytes % 2.1 %; Neutrophils # 10.6 K/mcL (1.6-8.9); Platelet Count 287 K/mcL (140-400); Red Blood Count 4.49 M/mcL (4.19-5.50); Red Cell Distribution Width 14.6 % (11.5-14.5); Segmented Neutrophils % 89.9 %
--- NOTE | 2017-03-12 10:14 | Cardiology Consult Note ---
Date of Encounter: 03/12/17 Time of Encounter: 10:09 Assessment and Plan (1) SVT (supraventricular tachycardia) Current Visit: Yes Status: Acute Possible reentrant SVT, EP consult. Recommend low dose BB. Can be seen inpatient Vs outpatient. (2) Chest pain Current Visit: Yes Status: Acute Occured with recent episode of SVT, RSCP not radiating without any other assciated sx. Outpatient chemical stress test is reasonable. Qualifiers: Chest pain type: unspecified Qualified Code(s): R07.9 - Chest pain, unspecified Discussion w patient/family: The assessment and plan as outlined above was discussed with the patient and/or family members who expressed understanding and agreement. All questions were answered. Thank you for involving us in the care of your patient. Please call with any questions. History of Present Illness Consult date: 03/11/17 Requesting physician: Matt Brown Consult reason: SVT Chief complaint: Palpitations History of present illness: Mr. Szymnaski is a 66 year old male presents to the ED with SOB, cough admitted with pneumonia. Patient while on telemetry complained of palpitations which he has been having in the past. EKG fund a rate above 150 bpm not converted with IV adenosine 6mg, and 12mg. Later Cardiazem 20mg IV bolus was administered and resulted in conversion to NSR. Occurs once a month lasts usually 5-10 minutes. longest was 30 minutes. Denies any TLOC with events but describes very mild lightheadedness and very mild chest discomfort. EKG reveals a retrograde P wave in V1 possibly related to a reentrant tachycardia. This usually would convert with adenosine but apparently did not. Will recommend EP consult. Currently in NSR and asymptomatic. Past Med Surg Social Fam HX - Past Medical History Medical history: asthma, COPD, hypertension, TIA Psychiatric history: no psych history - Past Surgical History Surgical History: other (tonsillectomy, LHC but no stents) - Social History Smoking Status: Former smoker (smoked from age of 19 years) Packs per day: 1-2ppd but quit 1 yr ago Smokeless Tobacco Status: No Alcohol use: none Drug use: none - Family History Mother History Unknown: Yes Father Living Status: Age at : 60 Hx Family Respiratory Disorders: Yes Medications and Allergies Acyclovir [Zovirax] 800 mg PO 5XD 10/27/17 [History] Albuterol Neb [Proventil Neb] 2.5 mg IH Q4H PRN 03/09/17 [History] Albuterol Sulfate [Proair Hfa] 2 puff IH Q4H PRN 03/09/17 [History] Budesonide/Formoterol 160/4.5 [Symbicort 160/4.5] 2 puff IH BIDR 03/09/17 [ History] Tiotropium [Spiriva] 18 mcg IH 0700 03/09/17 [History] 3 Allergy/AdvReac Type Severity Reaction Status Date / Time Sulfa (Sulfonamide Allergy Rash Verified 03/09/17 17:15 Antibiotics) All Systems Review: A 10-system review of systems was performed and is negative for pertinent findings except as documented above in the HPI. Physical Examination Vital Signs, Last 4 Hours Temp Pulse Resp BP Pulse Ox 03/12/17 09:49 16 95 03/12/17 07:34 98.3 F 82 16 128/76 91 General: Conversant, No Apparent Distress HEENT: Atraumatic, Normocephaly, Mucus Membranes Moist Neck: No JVD, Normal carotid pulses Cardiac: Reg Rate and Rhythm, Normal S1 and S2, No Murmur Lungs: Normal Breath Sounds, No Wheeze, Rales, Rhonchi Neuro: Alert and responsive, No focal deficits noted Abdomen: Soft, Non-Tender Skin: No rashes noted on visualized skin Musculoskeletal: No Chest Wall Tenderness Extremities: No Clubbing, No Cyanosis, No Edema, Normal Pulses Results 03/12/17 09:33 03/11/17 11:34 Lab Results 03/11/17 03/11/17 03/12/17 11:34 11:34 09:33 WBC 14.6 H 11.8 H Hgb 13.2 12.6 L Hct 41.2 39.9 Plt Count 289 287 Sodium 143 Potassium 3.7 Chloride 107 Carbon Dioxide 26 BUN 24 Creatinine 0.86 Glucose 151 H Calcium 9.2 Consult Discharge Plan - Plan Referrals: Trena Navarro, CREDIT ASSOCIATE [Primary Care Provider] -
[2017-03-12 10:17] LABS: BUN/Creatinine Ratio 27 (6-26); Blood Urea Nitrogen 23 mg/dL (8-26); Calcium 9.2 mg/dL (8.6-10.8); Carbon Dioxide 25 mEq/L (19-29); Chloride 106 mEq/L (98-109); Glucose 178 mg/dL (70-99); Osmolality,Calculated 300 (280-300); Potassium 3.7 mEq/L (3.5-4.5); Sodium 141 mEq/L (136-145); eGFR For African Americans > 60 (> 60); eGFR For Non-African Americans > 60 (> 60)
[2017-03-12] MEDS: cefTRIAXone 2,000 MG in Water for inj. (sterile) 20 ML IVP SCH (12:13)
--- NOTE | 2017-03-12 17:06 | Electrocardiograph Report ---
[place] [id number] Test Date: 2017-03-10 Pat Name: Luis Szymanski Department: 112 Room: [facility] Gender: M Retail Loss Prevention Officer: : 1950 Requested By: Donald Stevens Order Number: [id number] Reading MD: Gege Wallis Measurements Intervals [place] Rate: 100 P: 70 MN: 181 QRS: -71 QRSD: 121 T: 79 QT: 325 QTc: 382 Interpretive Statements SINUS TACHYCARDIA WITH OCCASIONAL SUPRAVENTRICULAR PREMATURE COMPLEXES LEFT ANTERIOR FASCICULAR BLOCK Electronically Signed On 03-12-2017 17:04:12 EDT by Gege Wallis
--- NOTE | 2017-03-12 17:08 | Internal Med Progress Note ---
Date of Encounter: 03/12/17 Time of Encounter: 11:00 - Assessment and plan (1) Acute respiratory failure with hypoxia Current Visit: Yes Status: Acute Assessment and plan: -Patient with acute hypoxic respiratory failure secondary to COPD exacerbation due to community-acquired pneumonia -Management as below -Will consult pulmonology and appreciate recommendations (2) Pneumonia Current Visit: Yes Status: Acute Assessment and plan: -Patient with diffuse expiratory wheezes and hypoxia -Chest x-ray showed Minimal linear opacity in the bases, favored to represent atelectasis or scarring. Superimposed pneumonia is a possibility in the appropriate clinical setting. -Continue IV antibiotics with IV ceftriaxone/azithromycin Qualifiers: Pneumonia type: due to unspecified organism Laterality: left Lung location: lower lobe of lung Qualified Code(s): J18.1 - Lobar pneumonia, unspecified organism (3) COPD exacerbation Current Visit: Yes Status: Acute Assessment and plan: -Patient hypoxic with diffuse expiratory wheezes. -Will continue DuoNeb with Solu-Medrol -Pulmonology consult as above (4) Tachycardia Current Visit: Yes Status: Acute Assessment and plan: -Patient was SVT on 03/11/17 which did not respond to adenosine or vagovagal maneuvers but did respond to Cardizem -Patient's heart rate has been controlled overnight on oral Cardizem -Cardiology consulted with recommendations to continue current medical management and follow-up of hris manager as an outpatient. (5) HTN (hypertension) Current Visit: Yes Status: Chronic Assessment and plan: -Controlled; continue current medical management Qualifiers: Hypertension type: essential hypertension Qualified Code(s): I10 - Essential (primary) hypertension (6) DVT prophylaxis Current Visit: Yes Status: Acute Assessment and plan: Continue heparin - Subjective Interval history: Patient's heart rate continues to be controlled on oral Cardizem Patient continues to require supplemental oxygen at 2 L satting low 90s without any improvement in wheezing - Constitutional Vitals: Temp Pulse Resp BP Pulse Ox 98.2 F 80 16 165/97 94 03/12/17 15:00 03/12/17 15:00 03/12/17 15:00 03/12/17 15:00 03/12/17 15:00 - Respiratory Respiratory exam: Present: wheezes. Absent: accessory muscle use, respiratory distress, rhonchi, stridor, tachypnea - Cardiovascular Cardiovascular exam: Present: RRR, +S1, +S2. Absent: diastolic murmur, gallop, rubs, systolic murmur Internal Medicine: Result - Labs CBC & Chem 7: 03/12/17 09:33 03/12/17 09:33 Labs: Short CBC 03/12/17 Range/Units 09:33 WBC 11.8 H (4.3-11.1) K/mcL Hgb 12.6 L (12.9-16.9) g/dL Hct 39.9 (37.5-50.1) % Plt Count 287 (140-400) K/mcL Neutrophils # 10.6 H (1.6-8.9) K/mcL BMP 03/12/17 09:33 Sodium 141 Potassium 3.7 Chloride 106 Carbon Dioxide 25 BUN 23 Creatinine 0.85 Glucose 178 H Calcium 9.2 - ABG Interpretation ABG results: ABG ABG pH 7.41 pH Units (7.32-7.45) 03/09/17 17:54 ABG pCO2 39 mmHg (35-45) 03/09/17 17:54 ABG pO2 70 mmHg (85-104) L 03/09/17 17:54 ABG O2 Saturation 94 % (95-98) L 03/09/17 17:54 PT/INR, D-dimer PT 12.0 Seconds (9.4-12.1) 03/09/17 17:10 D-Dimer 962 ng/mLFEU (0-500) H 03/09/17 17:10 Consult Discharge Plan - Plan Referrals: Trena Navarro, [employer] [Primary Care Provider] -
[2017-03-12] MEDS ORDERED: 0.9 % Sodium Chloride 1,000 ML ONE (21:13)
[2017-03-12] MEDS ORDERED: *HR* Metoprolol 5 MG/5 ML VIAL IVP PRN (23:46)
[2017-03-13] MEDS ORDERED: Acetaminophen 325 MG TABLET PO PRN (01:02)
[2017-03-13] MEDS ORDERED: *HR* Digoxin 0.5 MG/2 ML AMPUL IVP ONE (01:32)
[2017-03-13] MEDS: Ipratropium/Albuterol Neb 3 ML IH SCH ×4 (03:37→16:24)
--- NOTE | 2017-03-13 06:24 | Pulmonology Consult Note ---
Date of Encounter: 03/13/17 Time of Encounter: 06:15 Assessment and Plan (1) Acute respiratory failure with hypoxia Current Visit: Yes Status: Acute More likely due to COPD exacerbation complicated by bilateral bibasilar pneumonia. (2) Atrial fibrillation with RVR Current Visit: Yes Status: Acute To continue management according to cardiology (3) COPD exacerbation Current Visit: Yes Status: Acute Patient has Severe Emphysema , this COPD exacerbation is complicated by bibasilar pneumonia , to continue bronchodilators and steroids . (4) Pneumonia Current Visit: Yes Status: Acute Bilateral pneumonia left more than right sputum culture growing streptococcus pneumoniae. To treat with Ceftriaxone for 5 -7 days . Qualifiers: Pneumonia type: due to Pneumococcus Laterality: bilateral Lung location: lower lobe of lung Qualified Code(s): J13 - Pneumonia due to Streptococcus pneumoniae History of Present Illness Consult date: 03/13/17 Requesting physician: Donald Stevens Reason for consult: dyspnea, COPD, pneumonia, abnormal CXR/CT Chief complaint: Shortness of breadth and wheezing History of present illness: 66 year old male with past medical history significant for COPD came with shortness of breadth with cough , sputum production ,denies any hemoptysis , denies any chest pain , patient is pretty active at baseline according to good exercise tolerance , denies any frequent exacerbations , patient is allergic bird droppings last week he was cleaning his air conditioning found to have lot of bird poop according to the symptoms all started after that . Patient denies any heart issues in the past , during this admission he had a SVT/Atrial fibrillation is followed by cardiology . Pulmonary was consulted because his COPD symptoms are not improving . Patient usually doesnt get flu shots or pneumonia shots , has symptoms of sleep apnea never got evaluated he is followed by pulmonolgist in [facility] . Past Med Surg Social Fam HX - Past Medical History Medical history: asthma, COPD, hypertension, TIA Psychiatric history: no psych history - Past Surgical History Surgical History: other (tonsillectomy, LHC but no stents) - Social History Smoking Status: Former smoker (smoked from age of 19 years) Packs per day: 1-2ppd but quit 1 yr ago Smokeless Tobacco Status: No Alcohol use: none Drug use: none - Family History Mother History Unknown: Yes Father Living Status: Age at : 60 Hx Family Respiratory Disorders: Yes Medications and Allergies Acyclovir [Zovirax] 800 mg PO 5XD 03/09/17 [History] Albuterol Neb [Proventil Neb] 2.5 mg IH Q4H PRN 03/09/17 [History] Albuterol Sulfate [Proair Hfa] 2 puff IH Q4H PRN 03/09/17 [History] Budesonide/Formoterol 160/4.5 [Symbicort 160/4.5] 2 puff IH BIDR 03/09/17 [ History] Tiotropium [Spiriva] 18 mcg IH 0700 03/09/17 [History] 3 Allergy/AdvReac Type Severity Reaction Status Date / Time Sulfa (Sulfonamide Allergy Rash Verified 03/09/17 17:15 Antibiotics) All Systems: A 10-system review of systems was performed and is negative for pertinent findings except as documented above in the HPI. Physical Examination Vital Signs: Vital Signs, Last 4 Hours Temp Pulse Resp BP Pulse Ox 03/13/17 03:55 98.6 F 96 17 121/84 91 03/13/17 03:37 92 General appearance: other (Mild respiratory distress) Auscultation: bilateral: wheezes Cardiovascular: irregular rhythm Results - Laboratory Findings CBC and BMP: 03/12/17 09:33 03/12/17 09:33 ABG ABG pH 7.41 pH Units (7.32-7.45) 03/09/17 17:54 ABG pCO2 39 mmHg (35-45) 03/09/17 17:54 ABG pO2 70 mmHg (85-104) L 03/09/17 17:54 ABG O2 Saturation 94 % (95-98) L 03/09/17 17:54 PT/INR, D-dimer PT 12.0 Seconds (9.4-12.1) 03/09/17 17:10 D-Dimer 962 ng/mLFEU (0-500) H 03/09/17 17:10 Abnormal lab findings: Abnormal lab results WBC 11.8 K/mcL (4.3-11.1) H 03/12/17 09:33 Hgb 12.6 g/dL (12.9-16.9) L 03/12/17 09:33 RDW 14.6 % (11.5-14.5) H 03/12/17 09:33 Neutrophils # 10.6 K/mcL (1.6-8.9) H 03/12/17 09:33 D-Dimer 962 ng/mLFEU (0-500) H 03/09/17 17:10 ABG pO2 70 mmHg (85-104) L 03/09/17 17:54 ABG O2 Saturation 94 % (95-98) L 03/09/17 17:54 BUN/Creatinine Ratio 27 (6-26) H 03/12/17 09:33 Glucose 178 mg/dL (70-99) H 03/12/17 09:33 Phosphorus 1.6 mg/dL (2.3-4.7) L 03/10/17 06:44 B-Natriuretic Peptide 114 pg/mL (0-100) H 03/09/17 17:10 Globulin 3.6 g/dL (2.4-3.5) H 03/09/17 17:10 Urine Protein 30 mg/dL (Neg-Trace) H 03/09/17 17:59 Urine Ketones Trace mg/dL (Negative) H 03/09/17 17:59 Ur Leukocyte Esterase Trace (Negative) H 03/09/17 17:59 Urine Microscopic RBC 5-15 per hpf (0-3) H 03/09/17 17:59 Urine Microscopic WBC 5-15 per hpf (0-3) H 03/09/17 17:59 Ur Squamous Epith Cells Many per lpf (None-Few) H 03/09/17 17:59 Ur Culture Indicated? YES (NO) A 03/09/17 17:59 - Clinical Findings Intake & Output: Intake & Output 03/12/17 03/12/17 03/13/17 15:59 23:59 07:59 Intake Total Balance Weight 109.4 kg 109.316 kg Consult Discharge Plan - Plan Referrals: Trena Navarro, [employer] [Primary Care Provider] -
[2017-03-13] MEDS: MethylPREDNISolone 40 MG/ML VIAL IVP SCH ×2 (06:30→16:39)
[2017-03-13] MEDS: Budesonide/Formoterol 160/4.5 MDI IH SCH ×2 (07:45→22:26)
[2017-03-13] MEDS: *HR* Heparin 5,000 UNIT/ML VIAL SQ SCH ×2 (09:00→16:05)
[2017-03-13] MEDS: Azithromycin 250 MG TABLET PO SCH (09:00)
[2017-03-13] MEDS: *HR* Digoxin 0.5 MG/2 ML AMPUL IVP SCH ×2 (09:09→13:05)
--- NOTE | 2017-03-13 11:09 | Internal Med Progress Note ---
Date of Encounter: 03/13/17 Time of Encounter: 10:30 - Assessment and plan (1) SVT (supraventricular tachycardia) Current Visit: Yes Status: Acute Assessment and plan: Patient developed episodes of SVT during this hospitalization, not responded to adenosine but responded to Cardizem. He developed atrial fibrillation with rapid ventricular response overnight and has been started on IV Cardizem drip. Follow-up cardiology consult. Has been loaded with IV digoxin. Check 2-D echocardiogram. Continue telemetry monitoring. (2) Pneumonia Current Visit: Yes Status: Acute Assessment and plan: Improving. Blood cultures remain negative. Sputum culture grows streptococcus pneumoniae. Continue IV Rocephin and azithromycin-D4. Qualifiers: Pneumonia type: due to Pneumococcus Laterality: left Lung location: lower lobe of lung Qualified Code(s): J13 - Pneumonia due to Streptococcus pneumoniae (3) Acute respiratory failure with hypoxia Current Visit: Yes Status: Acute Assessment and plan: Secondary to acute COPD and underlying pneumonia. Continue supplemental oxygen. (4) HTN (hypertension) Current Visit: Yes Status: Chronic Qualifiers: Hypertension type: essential hypertension Qualified Code(s): I10 - Essential (primary) hypertension (5) COPD exacerbation Current Visit: Yes Status: Acute Assessment and plan: Follow-up pulmonology consult. Patient continues to have bilateral diffuse wheezing along with tachycardia. We will change breathing treatments to levalbuterol and ipratropium. Continue supplemental oxygen, wean down FiO2 as tolerated. Patient will require home oxygen evaluation prior to discharge. Taper down IV steroids as tolerated. - Subjective Interval history: Reports some shortness of breath, and constipation; also has intermittent palpitations with HR going up upon getting out of bed; currently on IV Cardizem drip; - Constitutional Vitals: Temp Pulse Resp BP Pulse Ox 97.8 F 101 18 146/84 88 03/13/17 08:22 03/13/17 08:22 03/13/17 08:22 03/13/17 08:22 03/13/17 08:22 General appearance: Present: A&O X 3, answers questions appropriately - Respiratory Respiratory exam: Present: CTAB, wheezes (diffuse B/L wheezing). Absent: accessory muscle use, rales, rhonchi - Cardiovascular Cardiovascular exam: Present: RRR, +S1, +S2. Absent: diastolic murmur, gallop, rubs, systolic murmur - GI/Abdominal GI/Abdominal exam: Present: normal bowel sounds, soft, no peritoneal signs. Absent: distended, tenderness - Extremities Exam Extremities exam: Present: full ROM, warm, radial pulses palpable and symmetrical. Absent: calf tenderness, cyanotic, pedal edema - Neurological Exam Neurological exam: Present: CN II-XII intact, oriented X3, no focal deficits. Absent: pronater drift, facial droop, speech deficit Internal Medicine: Result - Labs CBC & Chem 7: 03/12/17 09:33 03/12/17 09:33 - ABG Interpretation ABG results: ABG ABG pH 7.41 pH Units (7.32-7.45) 03/09/17 17:54 ABG pCO2 39 mmHg (35-45) 03/09/17 17:54 ABG pO2 70 mmHg (85-104) L 03/09/17 17:54 ABG O2 Saturation 94 % (95-98) L 03/09/17 17:54 PT/INR, D-dimer PT 12.0 Seconds (9.4-12.1) 03/09/17 17:10 D-Dimer 962 ng/mLFEU (0-500) H 03/09/17 17:10 Consult Discharge Plan - Plan Referrals: Trena Navarro, LEAD ARCHITECT [Primary Care Provider] -
[2017-03-13] MEDS: cefTRIAXone 2,000 MG in Water for inj. (sterile) 20 ML IVP SCH (11:23)
--- NOTE | 2017-03-13 14:41 | Cardiology Progress Note ---
Date of Encounter: 03/13/17 Time of Encounter: 14:25 Assessment and Plan (1) Atrial fibrillation with RVR Current Visit: Yes Status: Acute Overnight patient converted from SVT to afib with RVR now rate controlled on cardizem drip and digoxin. Plan: - convert from cardizem IV to PO - convert from digoxin IV to PO - continue telemetry - continue BB Discussion w patient/family: The assessment and plan as outlined above was discussed with the patient and/or family members who expressed understanding and agreement. All questions were answered. Thank you for involving us in the care of your patient. Please call with any questions. Subjective Interval history: Overnight patient progressed from SVT to afib with RVR with a rate into the 140s. Patient was started on Cardizem drip at 21:38 03/12/17 and did not decrease until Digoxin 0.5mg was given. Today, patient is still in afib but when I saw him he was rate controlled laying comfortably in bed. Patient states that he is not having chest pain or SOB at rest. Patient states that for years every so often will have chest fluttering and numbness in his jaw that will last a minute but was never found on holter monitor. Objective Vital Signs, Last 4 Hours Temp Pulse Resp BP Pulse Ox 03/13/17 11:20 97.4 F L 74 20 155/82 91 General: Conversant, No Apparent Distress HEENT: Atraumatic, Normocephaly, Mucus Membranes Moist Neck: No JVD, Other Cardiac: No Murmur, Other (irregularly irregular ) Lungs: Other (+ diffuse wheezing and prolonged expiratory phase. ) Neuro: Alert and responsive, No focal deficits noted Abdomen: Soft, Non-Tender Skin: No rashes noted on visualized skin Musculoskeletal: No Chest Wall Tenderness Extremities: No Edema, Normal Pulses Results 03/12/17 09:33 03/12/17 09:33 Consult Discharge Plan - Plan Referrals: Trena Navarro, [employer] [Primary Care Provider] -
[2017-03-13] MEDS ORDERED: *HR* Rivaroxaban 10 MG TABLET PO SCH (17:00)
[2017-03-13] MEDS: Metoprolol XL (24 HR) Succ 25 MG TAB.ER.24H PO SCH (18:36)
[2017-03-13] MEDS: Ipratropium Neb 0.5 MG NEBULIZER IH SCH (22:26)
[2017-03-13] MEDS: Levalbuterol Neb 1.25 MG/3 ML IH SCH (22:28)
[2017-03-14] MEDS: Ipratropium Neb 0.5 MG NEBULIZER IH SCH ×2 (04:22→11:07)
[2017-03-14] MEDS: Levalbuterol Neb 1.25 MG/3 ML IH SCH ×2 (04:22→11:07)
[2017-03-14 06:02] LABS: Hematocrit 41.5 % (37.5-50.1); Hemoglobin 13.3 g/dL (12.9-16.9); Immature Platelets 2.9 % (1.1-6.1); Mean Corpuscular Hemoglobin 28.3 pg (28.0-33.3); Mean Corpuscular Volume 88.3 fL (83.0-100.0); Mean Platelet Volume 9.4 fL (9.4-12.4); Platelet Count 306 K/mcL (140-400); Red Cell Distribution Width 14.5 % (11.5-14.5)
[2017-03-14 06:21] LABS: BUN/Creatinine Ratio 35 (6-26); Blood Urea Nitrogen 27 mg/dL (8-26); Calcium 8.8 mg/dL (8.6-10.8); Carbon Dioxide 27 mEq/L (19-29); Chloride 104 mEq/L (98-109); Glucose 113 mg/dL (70-99); Osmolality,Calculated 292 (280-300); Phosphorous 3.3 mg/dL (2.3-4.7); Potassium 4.4 mEq/L (3.5-4.5); Sodium 138 mEq/L (136-145); eGFR For African Americans > 60 (> 60); eGFR For Non-African Americans > 60 (> 60)
[2017-03-14 06:48] LABS: Lymphocytes # 3.5 K/mcL (0.6-4.6); Monocytes # 0.3 K/mcL (0.0-1.3); Platelet Estimate Normal (Normal); Reactive Lymphocytes Present (Not Present)
--- NOTE | 2017-03-14 08:05 | Electrocardiograph Report ---
[place] [id number] Test Date: 2017-03-14 Pat Name: Luis Szymanski Department: 112 Room: [facility] Gender: M Furniture Assembler: MARIYA : 1950 Requested By: Bettie Gallegos Order Number: [id number] Reading MD: Gege Wallis Measurements Intervals [place] Rate: 62 P: 45 [place]: 190 QRS: -36 QRSD: 111 T: 26 QT: 384 QTc: 389 Interpretive Statements SINUS RHYTHM LEFT AXIS DEVIATION INTRAVENTRICULAR CONDUCTION DELAY NONSPECIFIC T-WAVE ABNORMALITY Electronically Signed On 03-14-2017 8:04:37 EDT by Gege Wallis
[2017-03-14] MEDS: Metoprolol XL (24 HR) Succ 25 MG TAB.ER.24H PO SCH (08:22)
[2017-03-14] MEDS: Azithromycin 250 MG TABLET PO SCH (08:22)
--- NOTE | 2017-03-14 08:35 | Cardiology Progress Note ---
Date of Encounter: 03/14/17 Time of Encounter: 07:45 Assessment and Plan (1) Atrial fibrillation with RVR Current Visit: Yes Status: Acute Overnight patient was rate controlled and converted to normal sinus rhythm with an average HR over the last 12 hrs = 65, without pauses. Plan: - initiate Cardizem 120mg PO BID - d/c Cardizem drip 30 minutes after giving Cardizem PO - continue Xarelto - continue Toprol Xl 25mg daily and Lopressor 5mg IVP Q6hr prn - continue telemetry - will need f/u appointment with cardiology in 3-4 weeks. Discussion w patient/family: The assessment and plan as outlined above was discussed with the patient and/or family members who expressed understanding and agreement. All questions were answered. Thank you for involving us in the care of your patient. Please call with any questions. Subjective Interval history: Overnight patient was rate controlled and converted to normal sinus rhythm. This morning when I saw him after he got up and want to the bathroom patient's heart rate was in the 80s. Patient denies chest pain or jaw numbness. He is still coughing and short of breath from his pneumonia but not worsening in SOB. Objective Vital Signs, Last 4 Hours Temp Pulse Resp BP Pulse Ox 03/14/17 08:00 97.6 F 58 22 143/82 91 General: Conversant, No Apparent Distress HEENT: Atraumatic, Normocephaly, Mucus Membranes Moist Neck: No JVD Cardiac: Reg Rate and Rhythm, Normal S1 and S2, No Murmur Lungs: Other (+ wheezing, less than yesterday ) Neuro: Alert and responsive, No focal deficits noted Abdomen: Soft, Non-Tender Skin: No rashes noted on visualized skin Extremities: No Clubbing, No Cyanosis, No Edema, Normal Pulses Results 03/14/17 05:44 03/14/17 05:44 Lab Results 03/14/17 03/14/17 05:44 05:44 WBC 15.8 H Hgb 13.3 Hct 41.5 Plt Count 306 Sodium 138 Potassium 4.4 Chloride 104 Carbon Dioxide 27 BUN 27 H Creatinine 0.78 Glucose 113 H Calcium 8.8 Magnesium 2.0 Consult Discharge Plan - Plan Referrals: Trena Navarro, [employer] [Primary Care Provider] - 03/23/17 11:00 am (please follow up as schedule...)
[2017-03-14] MEDS ORDERED: Diltiazem CD (24hr) 120 MG CAPSULE PO SCH (11:00)
[2017-03-14] MEDS: Budesonide/Formoterol 160/4.5 MDI IH SCH (11:08)
[2017-03-14] MEDS ORDERED: Diltiazem SR (12hr) 60 MG CAPSULE PO SCH (11:15)
[2017-03-14] MEDS: cefTRIAXone 2,000 MG in Water for inj. (sterile) 20 ML IVP SCH (11:23)
[2017-03-14 12:24] VITALS: BP 153/81
[2017-03-14] MEDS ORDERED: FLUARIX QUAD 2017-18 36MOS UP/PF 0.5 ML SYRINGE IM ONE (14:01)
--- NOTE | 2017-03-14 14:15 | Discharge Summary ---
Date of Encounter: 03/14/17 Time of Encounter: 14:11 - Discharge Diagnosis (1) SVT (supraventricular tachycardia) Priority: Primary Status: Resolved (2) Pneumonia Priority: Primary Status: Acute Qualifiers: Pneumonia type: due to Pneumococcus Laterality: bilateral Lung location: lower lobe of lung Qualified Code(s): J13 - Pneumonia due to Streptococcus pneumoniae (3) Acute respiratory failure with hypoxia Priority: Primary Status: Resolved (4) HTN (hypertension) Priority: Secondary Status: Chronic Qualifiers: Hypertension type: essential hypertension Qualified Code(s): I10 - Essential (primary) hypertension (5) COPD exacerbation Priority: Primary Status: Acute (6) Atrial fibrillation with RVR Priority: Primary Status: Acute - Discharge Medications Prescriptions: Cephalexin [Keflex] 500 mg PO BID #6 capsule Diltiazem SR (12hr) [Cardizem SR] 120 mg PO BID #60 cap.er.12h Metoprolol XL (24 HR) Succ [Toprol Xl] 25 mg PO DAILY #30 tab.er.24h predniSONE [PredniSONE] 40 mg PO DAILY 7 Days tablet Rivaroxaban [Xarelto] 20 mg PO 1700 #60 tablet Home Medications: Albuterol Neb [Proventil Neb] 2.5 mg IH Q4H PRN 03/09/17 [History] Albuterol Sulfate [Proair Hfa] 2 puff IH Q4H PRN 03/09/17 [History] Budesonide/Formoterol 160/4.5 [Symbicort 160/4.5] 2 puff IH BIDR 03/09/17 [ History] Tiotropium [Spiriva] 18 mcg IH 0700 03/09/17 [History] Cephalexin [Keflex] 500 mg PO BID #6 capsule 03/14/17 [Rx] Diltiazem SR (12hr) [Cardizem SR] 120 mg PO BID #60 cap.er.12h 03/14/17 [Rx] Metoprolol XL (24 HR) Succ [Toprol Xl] 25 mg PO DAILY #30 tab.er.24h 03/14/17 [ Rx] Rivaroxaban [Xarelto] 20 mg PO 1700 #60 tablet 03/14/17 [Rx] predniSONE [PredniSONE] 40 mg PO DAILY 7 Days tablet 03/14/17 [Rx] Allergies/Adverse Reactions: 3 Allergy/AdvReac Type Severity Reaction Status Date / Time Sulfa (Sulfonamide Allergy Rash Verified 03/09/17 17:15 Antibiotics) Procedures/tests Complete & Pending: Procedures Performed prior 72 hours Category Date Time Status ECG 12 lead ECG [ECG] Routine Y 03/14/17 03:36 Completed EKG [ECG 12 lead ECG] [ECG] Stat Y 03/12/17 20:05 Ordered EV echocardiogram Routine Y 03/13/17 11:16 Completed Date of admission: 03/09/17 23:43 Primary care physician: Trena Navarro CNP Consults: 03/10/17 19:15 Consult to Cardiology [CONS] Routine Comment: Consulting Provider: Cardiology [place] Reason for Consult: SVT Call Completed: No 03/11/17 14:40 Consult to Pulmonology [CONS] Routine Consulting Provider: [facility] [place] Reason for Consult: acute on chronic COPD with hypoxic respiratory failure Call Completed: No Discharging clinician: Bettie Gallegos Anticipated date of discharge: 03/14/17 - Patient Status Disposition: Home, Self-Care Condition: Fair Functional capacity at discharge: independent ambulation Overall status at discharge: patient is progressing back to baseline - Discharge Instructions Instructions: Atrial Fibrillation (DC), Chronic Obstructive Pulmonary Disease ( DC), Pneumonia (DC) Follow Up With: Trena Navarro CNP [Primary Care Provider] - 03/23/17 11:00 am (please follow up as schedule...) Missy Castro MD [Partnered Physician] - (office will call an appointment..) - Diet and Activity Activity: resume usual activities as tolerated Diet: advance to your usual diet, low fat, low cholesterol, low salt diet Hospital course: Mr. Szymanski is a 66 year old male with history of COPD, presented with worsening cough and shortness of breath. Chest x-ray showed bibasal infiltrates. Patient was started on empiric IV antibiotics along with IV steroids, supplemental oxygen and bronchodilators. Patient continued to have bilateral diffuse wheezing and remained hypoxic on this regimen. Blood cultures remained negative, sputum culture grew Streptococcus pneumoniae. Pulmonology was consulted and agreed with current management. Patient developed episodes of supraventricular tachycardia during this hospitalization, which responded to Cardizem and not to add adenosine. He then developed atrial fibrillation with rapid ventricular response and had to be started on IV Cardizem drip. Cardiology was consulted and he was loaded with IV digoxin and Cardizem was gradually switched to oral Cardizem along with beta ana and his heart rate was gradually well controlled. Echocardiogram was done which showed preserved ejection fraction, no gross abnormalities. Patient was also started on anticoagulation with Xarelto. He is currently doing much better, saturating well on room air and is medically stable for discharge, with outpatient follow-up. - Time Spent with Patient Total time spent providing and/or coordinating discharge services: Greater than 30 minutes (45 min) - Constitutional Vitals: Temp Pulse Resp BP Pulse Ox 97.4 F L 74 16 153/81 92 03/14/17 12:22 03/14/17 12:22 03/14/17 12:22 03/14/17 12:22 03/14/17 12:22 General appearance: Present: A&O X 3, answers questions appropriately - Respiratory Respiratory exam: Present: CTAB, wheezes (B/L coarse breath sounds and end- expiratory wheezing- improving). Absent: accessory muscle use, rales, rhonchi
--- NOTE | 2017-03-14 17:32 | Pulmonology Progress Note ---
Date of Encounter: 03/14/17 Time of Encounter: 13:00 Assessment and Plan (1) Acute respiratory failure with hypoxia Status: Resolved COPD exacerbation getting better on steroids , will need to ascertain exercise oxygen needs before we send him home, he might need O2 on discharge should follow up with pulmonary 6-8 weeks . To send him on albuterol and Symbicort (2) Atrial fibrillation with RVR Status: Acute Management according to cardiology. (3) COPD exacerbation Status: Acute Getting better with antibiotics and steroids , will send him on prolonged steroid taper , Albuterol and Symbicort . (4) Pneumonia Status: Acute To complete the 5-7 day course of antibiotics. Qualifiers: Pneumonia type: due to Pneumococcus Laterality: bilateral Lung location: lower lobe of lung Qualified Code(s): J13 - Pneumonia due to Streptococcus pneumoniae Subjective Principal diagnosis: COPD exacerbation Interval history: Patient came with COPD exacerbation and pneumonia patient is getting better on antibiotics and steroids . Objective PUL Vital signs: Last Vital Signs Temp 97.4 F L 03/14/17 12:22 Pulse 74 03/14/17 12:22 Resp 16 03/14/17 12:22 BP 153/81 03/14/17 12:22 Pulse Ox 92 03/14/17 12:22 Auscultation: bilateral: wheezes Cardiovascular: irregular rhythm Results - Laboratory Findings CBC and BMP: 03/14/17 05:44 03/14/17 05:44 ABG ABG pH 7.41 pH Units (7.32-7.45) 03/09/17 17:54 ABG pCO2 39 mmHg (35-45) 03/09/17 17:54 ABG pO2 70 mmHg (85-104) L 03/09/17 17:54 ABG O2 Saturation 94 % (95-98) L 03/09/17 17:54 PT/INR, D-dimer PT 12.0 Seconds (9.4-12.1) 03/09/17 17:10 D-Dimer 962 ng/mLFEU (0-500) H 03/09/17 17:10 Abnormal lab findings: Abnormal lab results WBC 15.8 K/mcL (4.3-11.1) H 03/14/17 05:44 Neutrophils # 12.0 K/mcL (1.6-8.9) H 03/14/17 05:44 Reactive Lymphocytes Present (Not Present) A 03/14/17 05:44 D-Dimer 962 ng/mLFEU (0-500) H 03/09/17 17:10 ABG pO2 70 mmHg (85-104) L 03/09/17 17:54 ABG O2 Saturation 94 % (95-98) L 03/09/17 17:54 BUN 27 mg/dL (8-26) H 03/14/17 05:44 BUN/Creatinine Ratio 35 (6-26) H 03/14/17 05:44 Glucose 113 mg/dL (70-99) H 03/14/17 05:44 B-Natriuretic Peptide 114 pg/mL (0-100) H 03/09/17 17:10 Globulin 3.6 g/dL (2.4-3.5) H 03/09/17 17:10 Urine Protein 30 mg/dL (Neg-Trace) H 03/09/17 17:59 Urine Ketones Trace mg/dL (Negative) H 03/09/17 17:59 Ur Leukocyte Esterase Trace (Negative) H 03/09/17 17:59 Urine Microscopic RBC 5-15 per hpf (0-3) H 03/09/17 17:59 Urine Microscopic WBC 5-15 per hpf (0-3) H 03/09/17 17:59 Ur Squamous Epith Cells Many per lpf (None-Few) H 03/09/17 17:59 Ur Culture Indicated? YES (NO) A 03/09/17 17:59 - Clinical Findings Intake & Output: Intake & Output 03/14/17 03/14/17 03/14/17 07:59 15:59 23:59 Intake Total 60 / 60 615 / 615 Output Total 600 / 600 Balance 60 / 60 15 15 Weight 109.31 kg Consult Discharge Plan - Plan Instructions: Atrial Fibrillation (DC), Chronic Obstructive Pulmonary Disease ( DC), Pneumonia (DC) Referrals: Trena Navarro CNP [Primary Care Provider] - 03/23/17 11:00 am (please follow up as schedule...) Missy Castro MD [Partnered Physician] - (office will call an appointment..) Prescriptions: Cephalexin [Keflex] 500 mg PO BID #6 capsule Diltiazem SR (12hr) [Cardizem SR] 120 mg PO BID #60 cap.er.12h Metoprolol XL (24 HR) Succ [Toprol Xl] 25 mg PO DAILY #30 tab.er.24h predniSONE [PredniSONE] 40 mg PO DAILY 7 Days tablet Rivaroxaban [Xarelto] 20 mg PO 1700 #60 tablet
--- NOTE | 2017-03-15 09:44 | Electrocardiograph Report ---
[place] [id number] Test Date: 2017-03-09 Pat Name: Luis Szymanski Department: 104 Room: [facility] Gender: M Field Marketer: TAMIKO : 1950 Requested By: Ming Davison Order Number: [id number] Reading MD: Gege Wallis Measurements Intervals [place] Rate: 123 P: 60 [place]: 112 QRS: -81 QRSD: 107 T: 73 QT: 313 QTc: 386 Interpretive Statements SINUS TACHYCARDIA LEFT ANTERIOR FASCICULAR BLOCK Electronically Signed On 03-15-2017 9:42:48 EDT by Gege Wallis
== END 2017-03-14 16:14 | disposition home or self-care (01) | DRG 193 ==
LOC: 2ANU 16:37 → EMEROO 16:37 → 2ANU 22:23 → SUATTDRO 23:43
PROVIDERS: ADMIT Family Medicine; ATTEND Internal Medicine